=== PATIENT | female | born 1995 | race Caucasian/White ===

== ENCOUNTER 2017-11-19 20:40 | Emergency (ER) | payer OTHER ==
[2017-11-19 21:29] VITALS: TEMP 98.8
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
[2017-11-19 23:01] VITALS: BP 102/64; PULSE 78; RESP 16; O2SAT 95
== END 2017-11-19 23:04 | disposition home or self-care (01) ==
PROC: 0HQFXZZ Repair Right Hand Skin, External Approach (ICD-10-PCS; principal; 2017-11-19)
DX: S61.210A Laceration without foreign body of right index finger without damage to nail, initial encounter (principal); W26.8XXA Contact with other sharp object(s), not elsewhere classified, initial encounter; Y99.8 Other external cause status; Y93.89 Activity, other specified

== ENCOUNTER 2018-05-26 22:57 | Emergency (ER) | payer OTHER ==
[2018-05-26] MEDS ORDERED: ONDANSETRON DISINTEGRATING 4 MG TAB PO ONE (23:25)
--- NOTE | 2018-05-27 00:11 | EDPHY ---
General Time Seen by Provider: 05/26/18 23:28 Narrative: CHIEF COMPLAINT: Possible concussion HISTORY OF PRESENT ILLNESS: Patient presents with complaints of "possible concussion." She states that 8:00 p.m. She was in home when she accidentally turned quickly and hit her head on a cabinet corner. This struck her on the right frontal portion of her scalp. She did not lose consciousness. She says she did felt sudden onset of pain. She has some "fuzzy vision,"headache and feels "like I have a concussion."She has no vomiting. Some mild nausea. No diplopia. No painful movement of the eyes. No neck pain or stiffness. No bleeding from the site. No chest, back or abdominal pain. No use of anticoagulants. No known bleeding disorders in herself or her family. No previous diagnosis of concussion. She has been ambulatory without difficulty. No other associated complaints or modifying factors. REVIEW OF SYSTEMS: 10 systems were reviewed and negative with the exception of the elements mentioned in the history of present illness. PCP: Dr. Nolan SPECIALISTS: GI PAST MEDICAL HISTORY: Irritable bowel PAST SURGICAL HISTORY: No surgical history SOCIAL HISTORY: Nonsmoker. Lives independently with her significant other. Works at [employer] FAMILY HISTORY: Noncontributory EXAMINATION: General Appearance: Alert, no distress Head: normocephalic, atraumatic. No Wright sign. No raccoon eyes. No deformity, hematoma or depression. No laceration. Eyes: Pupils equal and round, no conjunctival pallor or injection ENT, Mouth: Mucous membranes moist Neck: Normal inspection, supple, non-tender Respiratory: Lungs are clear to auscultation Cardiovascular: Regular rate and rhythm Gastrointestinal: Abdomen is soft and nontender Back: non-tender, no bony abnormalities Neurological: GCS 15. A&O, nonfocal, normal gait. No pronator drift. Normal [id number]. Strength is 5/5 in the elbows, wrists, interossei, knees, ankles and great toes. Skin: Warm and dry, no rash Extremities: Nontender, no pedal edema Psychiatric: Mood and affect normal DIFFERENTIAL DIAGNOSES: Including but not limited to concussion, intracranial hemorrhage, contusion, skull fracture MDM: 11:30 p.m. Closed head injury this evening with no signs of intracranial abnormality by history exam. [place] CT head rules are negative. She is well-appearing. There is conversing appropriately in full sentences. There is no altered mentation. She does have a mild headache with some nausea. No focal findings. I have offered a CT scan of the head for further delineation but she has declined. I do feel she has full capability of making this decision at this time. I have ordered Zofran ODT and we will monitor. 12:10 p.m. Patient re-evaluated. Nausea is completely gone. She still has a mild headache , thus I will order Tylenol. I do feel she is stable for discharge home with symptomatic medications including Tylenol, ibuprofen and nausea medicine. She already has a nausea medicine at home for her irritable bowel syndrome. We discussed rest, work no and follow up with Dr. Foley for concussion care. We discussed head injury precautions with strict ED precautions. She is verbalized understanding of this. She has tolerated intake by mouth. Discharged stable condition SUPERVISION: This patient was independently evaluated without direct involvement of or examination by the attending physician. CONSULTATION: None - History Smoking Status: Never smoked - Objective Vital Signs: Initial Vital Signs Temperature (C) 97.5 F 05/26/18 23:06 Heart Rate 81 05/26/18 23:06 Respiratory Rate 18 05/26/18 23:06 Blood Pressure 125/90 H 05/26/18 23:06 O2 Sat (%) 96 05/26/18 23:06 O2 Delivery Mode Room Air Allergies/Adverse Reactions: No Known Allergies Allergy (Unverified 11/19/17 21:25) Home Medications: Medication Instructions Recorded Controll Pill 05/26/18 Departure - Departure Disposition: Home, Routine, Self-Care Clinical Impression: Nausea Head injury Qualifiers: Encounter type: initial encounter Qualified Code(s): S09.90XA - Unspecified injury of head, initial encounter Headache Qualifiers: Headache type: unspecified Headache chronicity pattern: acute headache Intractability: not intractable Qualified Code(s): R51 - Headache Condition: Good Instructions: Head Injury (ED), Concussion (ED) Additional Instructions: 1. Tylenol 500 mg every 6-8 hours as needed for headache 2. Ibuprofen 600 mg every 8 hr as needed for headache 3. Continue your Zofran prescription as previously prescribed as needed 4. Contact Dr. Foley and her primary care physician for outpatient care 5. ED precautions as discussed Referrals: Kayley Nolan MD [Primary Care Provider] - As per Instructions Christine Foley MD [Medical Doctor] - As per Instructions Stand Alone Forms: Work Excuse
[2018-05-27] MEDS ORDERED: ACETAMINOPHEN 325 MG TAB ONE (00:14)
[2018-05-27] MEDS ORDERED: ACETAMINOPHEN 325 MG TAB PO ONE (00:15)
[2018-05-27 00:37] VITALS: BP 104/74
== END 2018-05-27 00:37 | disposition home or self-care (01) ==
DX: S09.90XA Unspecified injury of head, initial encounter (principal); R11.0 Nausea; W22.8XXA Striking against or struck by other objects, initial encounter; Y92.009 Unspecified place in unspecified non-institutional (private) residence as the place of occurrence of the external cause; Y93.9 Activity, unspecified; Y99.9 Unspecified external cause status